=== PATIENT | female | born 1990 | race Caucasian/White ===

== ENCOUNTER → 2016-12-06 | Outpatient (CLI) | payer BC ==
[~2016-12-06] MED LIST: ACID CONTROL150 M1 PO; ALLEGRA ALLERG180 MG PO; ESCITALOPRAM OX10 MG PO; MOBIC15 MG PO
[2016-12-06 11:03] LABS: CHOLESTEROL 134 mg/dL (0-200); GLUCOSE FASTING 83 mg/dL (70-110); HDL CHOLESTEROL 53 mg/dL (35-95); LDL CHOLESTEROL 57 mg/dL (-130); LDL/HDL RATIO 1 RATIO (0-4); TRIGLYCERIDES 118 mg/dL (10-160)
== END | disposition home or self-care (01) ==
LOC: CLAB 09:55
PROVIDERS: Surgery
DX: E66.01 Morbid (severe) obesity due to excess calories (principal)
CPT/HCPCS: 36415; 80061; 82947